=== PATIENT | male | born 1950 | race Caucasian/White ===

== ENCOUNTER 2023-08-08 04:54 | Observation (INO) ==
--- NOTE | 2023-07-03 11:54 | PAT Medication Instructions ---
Medication Instructions Date of Service July 03, 2023 Home Medications amlodipine 5 mg tablet 5 mg PO QAM aspirin 81 mg tablet,delayed release 81 mg PO QAM lisinopril 20 mg tablet 20 mg PO QAM simvastatin 40 mg tablet 40 mg PO PM tamsulosin 0.4 mg capsule 0.8 mg PO PM ASK your prescriber and surgeon aspirin 81 mg tablet,delayed release 81 mg PO QAM DO NOT take the morning of surgery lisinopril 20 mg tablet 20 mg PO QAM Take morning of surgery With a small sip of water, OTHERWISE NOTHING TO EAT OR DRINK AFTER MIDNIGHT: amlodipine 5 mg tablet 5 mg PO QAM Take evening before surgery simvastatin 40 mg tablet 40 mg PO PM tamsulosin 0.4 mg capsule 0.8 mg PO PM Other Notes If you have any questions please call us at [phone] or [phone] or [phone] or [phone]
--- NOTE | 2023-07-09 11:35 | Anesthesiology Consultation ---
Date of Service July 09, 2023 History Surgery Operation Date: 08/08/23 07:15 Proposed Procedures p Left Total Knee Arthroplasty(Left) - Antolin Coronado DO Height/Weight Height: 6 ft 1 in Weight: 113.398 kg Allergies Allergy/AdvReac Type Severity Reaction Status Date / Time atenolol Allergy Intermediate "blood Verified 07/02/23 13:17 pressure issues" Medications Home Medications Medication Instructions Recorded Confirmed Last Taken amlodipine 5 mg tablet 5 mg PO QAM 07/02/23 07/02/23 Unknown aspirin 81 mg tablet,delayed 81 mg PO QAM 07/02/23 07/02/23 Unknown release lisinopril 20 mg tablet 20 mg PO QAM 07/02/23 07/02/23 Unknown simvastatin 40 mg tablet 40 mg PO PM 07/02/23 07/02/23 Unknown tamsulosin 0.4 mg capsule 0.8 mg PO PM 07/02/23 07/02/23 Unknown Past Medical History Medical History BPH (benign prostatic hyperplasia) History of aortic valve disease s/p TAVR (08/2022) Follows with Dr. Palmer Hyperlipidemia Hypertension Kidney cysts Obesity Osteoarthritis Umbilical hernia present Past Surgical History Surgical History History of anesthesia reaction [place] a lot of right sided pain during TAVR, ? sedation History of arthroscopy left knee History of cardiac cath Jul 2022 > no stents History of colonoscopy Hx of hernia repair x2 S/P TAVR (transcatheter aortic valve replacement) 08/2022, [facility] [place] Social History Smoking Status: Former smoker Do You Dip or Chew Tobacco: No Smoking End Date: 30 yrs ago Hx Alcohol Use: No Hx Substance Use: No substance use type: does not use
--- NOTE | 2023-07-09 11:38 | Anesthesiology Consultation ---
Date of Service July 09, 2023 Assessment & Plan (1) Encounter for pre-operative examination: - Infectious disease screening: Per assessment on 07/09/23: No known infectious disease contacts or current infectious disease symptoms. No noted recent Covid positive test result. - Outpatient joint assessment: Pt currently scheduled for inpatient pathway. If surgeon requests review for outpatient joint pathway, patient is not recommended candidate for outpatient joint program from anesthesia standpoint based on available information. - Awaiting upcoming cardiology-ordered Echo (Dr. Palmer, appt 07/27) and upcoming cardiology office visit note (Dr. Palmer, appt 08/03). Chart Review Chart Review: Patient seen in Pre Admission Testing Teaching & Discussion Pre-Anesthesia Teaching/Discussion Notes: Instructed NPO after midnight before surgery,except medications with 15 cc of water. Medication instructions provided according to the PAT guidelines. History Surgery Operation Date: 08/08/23 07:15 Proposed Procedures p Left Total Knee Arthroplasty(Left) - Antolin Coronado, Height/Weight Height: 6 ft 1 in Weight: 117.4 kg Allergies Allergy/AdvReac Type Severity Reaction Status Date / Time atenolol Allergy Intermediate "blood Verified 07/02/23 13:17 pressure issues" Medications Home Medications Medication Instructions Recorded Confirmed Last Taken amlodipine 5 mg tablet 5 mg PO QAM 07/02/23 07/02/23 Unknown aspirin 81 mg tablet,delayed 81 mg PO QAM 07/02/23 07/02/23 Unknown release simvastatin 40 mg tablet 40 mg PO PM 07/02/23 07/02/23 Unknown tamsulosin 0.4 mg capsule 0.8 mg PO PM 07/02/23 07/02/23 Unknown lisinopril 20 1 tab PO DAILY 07/09/23 07/09/23 Unknown mg-hydrochlorothiazide 12.5 mg tablet Past Medical History Medical History BPH (benign prostatic hyperplasia) History of aortic valve disease s/p TAVR (08/2022) Follows with Dr. Palmer Hyperlipidemia Hypertension Kidney cysts Obesity Osteoarthritis Umbilical hernia present Exercise / Class Metabolic Activity II 4-5 Yardwork/Stairs/Walk up hill (one FS (no CP, no SOB)) Past Surgical History Surgical History History of anesthesia reaction [place] a lot of right sided pain during TAVR (done with light sedation per patient) History of arthroscopy left knee History of cardiac cath Jul 2022 > no stents History of colonoscopy Hx of hernia repair x2 S/P TAVR (transcatheter aortic valve replacement) 08/2022, [facility] [place] Past Anesthesia History No Family Hx of Anesthesia Complications and Other ([place] a lot of right sided pain during TAVR (done with light sedation per patient)) History of PONV No Hx of PONV and No Hx of Motion Sickness Social History Smoking Status: Former smoker Do You Dip or Chew Tobacco: No Smoking End Date: Quit 30 years ago Hx Alcohol Use: No Hx Substance Use: No substance use type: does not use Review of Systems Patient denies chest pain, shortness of breath, dyspnea on exertion, fever, chills, cough, wheezing, palpitations. Physical Exam Vital Signs VITALS BP 151/72 P 71 TEMP 97.9 SP02 96%RA RESP 18 PHYSICAL Full cervical extension range of motion. Full TMJ range of motion. TMD 3 finger breaths Mallampati Score 3 Dentition: several missing teeth, upper front crowns Lungs: clear throughout to auscultation Cardiac: regular rate and rhythm, III/ systolic murmur with carotid radiation Spine: normal Extremities: no LE edema Lab Results Anesthesia Preop Results Results Anesthesia Widget: PT 11.1 Seconds (9.0-12.0) 07/09/23 PTT 28 Seconds (21-31) 07/09/23 INR 1.0 (0.9-1.1) 07/09/23 Urine Color Yellow 07/09/23 Urine Appearance Clear (Clear) 07/09/23 Urine pH 5.0 (4.5-7.5) 07/09/23 Urine Specific [place] 1.017 (1.000-1.030) 07/09/23 Urine Protein Negative (Negative) 07/09/23 Urine Glucose (UA) Negative (Negative) 07/09/23 Urine Ketones Negative (Negative) 07/09/23 Urine Blood Negative (Negative) 07/09/23 Urine Nitrite Negative (Negative) 07/09/23 Urine Bilirubin Negative (Negative) 07/09/23 Urine Urobilinogen Negative (Negative) 07/09/23 Urine Leukocyte Esterase Negative (Negative) 07/09/23 Blood Type A Positive 07/09/23 Antibody Screen NEGATIVE 07/09/23 Testing Laboratory Results 06/13/23 WBC 6.4 H/H 14.0/41.4 PLATELETS 191 SODIUM 139 POTASSIUM 4.3 CHLORIDE 106 CO2 25 BUN 15 CREATININE 0.9 GLUCOSE 112 HGBA1C 5.5% Electrocardiogram Date: 09/29/22 Sinus bradycardia at 55 bpm. Voltage criteria for LVH. Nonspecific T wave abnormality. Chest X-Ray Date: 07/09/23 FINDINGS: Cardiac mediastinal and hilar silhouettes are within normal limits prosthetic aortic valve. Atherosclerosis of the aorta. No pneumothorax, pleural effusion or airspace consolidation. The bones appear grossly intact. IMPRESSION: No acute process. Echocardiogram Date: 09/29/22 Cardiac Catheterization Date: 06/08/22 Recommendations: Aggressive risk factor modification. No significant epicardial coronary artery disease. Impression plan: To follow-up in our valve clinic where decision shall be made depending on investigations and further team discussions about a surgical or transcatheter aortic valve replacement. > Subsequent TAVR performed 08/2022*
--- NOTE | 2023-07-10 08:19 | History & Physical Report ---
Date of Service July 10, 2023 date of surgery: 08/08/23 Procedure: Left Total Knee Arthroplasty Surgeon: Antolin Coronado, DO Assessment & Plan (1) Arthritis of knee, left: Plan: Presents for evaluation of continued bilateral knee pain, left greater than rig ht. Has a longstanding history of knee pain, has undergone previous viscosupplementation as well as corticosteroid injections without any significant relief. Repeat radiographs show advanced degenerative changes to bilateral knees, has complete loss of medial compartment with overall varus alignment, osteophyte formation subchondral sclerosis noted. We discussed treatment options he would like to proceed with surgical intervention. He does have a history of heart valve replacement, would recommend doing his left knee first and then 6 to 8 weeks later can schedule for his right knee pending his recovery after his left. We will need cardiac clearance as well as clearance from his PCP prior to the surgery. We will plan on patient-matched [facility] [employer] left total knee arthroplasty with overnight stay at the hospital. He otherwise has no other questions or concerns The risks and benefits have been discussed including, but not limited to, risk of infection, nerve injury, stiffness, loss of motion, failure to improve, etc. Reasonable outcomes and options of treatment were discussed. An explanation of appropriate alternatives to the procedure that may be advantageous were discus sed and their risks and benefits, as well as the risks and benefits of not proceeding with treatment. I offered to answer any additional inquiries concerning the treatment involved. All the patient's questions were answered. The patient is agreeable, understanding of the treatment plan and alternatives, and wishes to proceed with the treatment plan. History of Present Illness Chief Complaint: left knee pain Primary Care Provider: NO PCP Mr Bryant is a pleasant 73-year-old male who presented for preop evaluation prior to upcoming left total knee arthroplasty. He has a longstanding history of left knee pain which is gradually worsened and is now affecting his daily activities including walking standing using stairs. He has tried oral anti- inflammatories as well as Tylenol without relief, he is also undergone previous corticosteroid injection and viscosupplementation with no improvement. This point time is failed conservative measures and wishes to proceed with a left total knee replacement Allergies Allergy/AdvReac Type Severity Reaction Status Date / Time atenolol Allergy Intermediate "blood Verified 07/02/23 13:17 pressure issues" Home Medications Medication Instructions Recorded Confirmed Type amlodipine 5 mg tablet 5 mg PO QAM 07/02/23 07/02/23 History aspirin 81 mg tablet,delayed 81 mg PO QAM 07/02/23 07/02/23 History release simvastatin 40 mg tablet 40 mg PO PM 07/02/23 07/02/23 History tamsulosin 0.4 mg capsule 0.8 mg PO PM 07/02/23 07/02/23 History lisinopril 20 1 tab PO DAILY 07/09/23 07/09/23 History mg-hydrochlorothiazide 12.5 mg tablet Past Med/Surg History Medical History Obesity History of aortic valve disease s/p TAVR (08/2022) Follows with Dr. Palmer Osteoarthritis Kidney cysts BPH (benign prostatic hyperplasia) Umbilical hernia present Hyperlipidemia Hypertension Surgical History History of anesthesia reaction [place] a lot of right sided pain during TAVR (done with light sedation per patient) History of arthroscopy left knee History of colonoscopy Hx of hernia repair x2 History of cardiac cath Jul 2022 > no stents S/P TAVR (transcatheter aortic valve replacement) 08/2022, [facility] [place] Social History Smoking Status: Former smoker Second Hand Exposure: No; Do You Dip or Chew Tobacco: No; Hx Alcohol Use: No Hx Substance Use: No Preferred Language: Burmese Communication Ability: Effective Circuit Manager Required: No Beliefs That Will Affect Care: None Current Living Situation: Spouse Feels Safe at Home: Yes Assistive Devices: Glasses and Hearing Aid - Bilateral Review of Systems Review of Systems: All systems reviewed & are unremarkable except as noted in HPI & below Constitutional: no fever, no chills and no sweats Respiratory: no cough and no dyspnea Cardiovascular: no chest pain, no dyspnea and no orthopnea Gastrointestinal: no abdominal pain, no nausea and no vomiting Musculoskeletal: as per Subjective / HPI Physical Exam Physical Exam: HT: 6ft 1in WT: 117kg Constitutional: WD/WN, vitals as above no acute distress Respiratory: normal respiratory effort, lungs clear to auscultation no respiratory distress, no labored breathing and does not use accessory muscles Cardiovascular: RRR, no murmur, no edema Gastrointestinal (Abdomen): normal bowel sounds, soft, nontender, no hepatosplenomegaly Musculoskeletal: Knee: + knee abnormal to inspection (LEFT KNEE: ), + effusion (+1 effusion), + limited ROM of knee (ROM 0/3/110), + knee ROM with crepitation, + joint line tenderness (medial joint line) and + Bharti's sign positive; no deformity, no skin erythema, no ecchymosis, no valgus laxity, no varus laxity, anterior drawer test negative, Jm's sign negative and pivot shift test negative Results & Data Results & Data Diagnostic Findings Left Knee X-ray: left knee series confirm advanced degenerative changes to the left knee, greatest medial compartments and patellofemoral joint, showing joint space narrowing, osteophyte formation and subchondral sclerosis. no acute bony pathology noted.
[2023-08-08] MEDS: GABAPENTIN 300 MG CAP PO SCH (05:52)
[2023-08-08] MEDS: CeleBREX 200 MG CAP PO SCH (05:52)
[2023-08-08] MEDS: FAMOTIDINE 20 MG TAB PO SCH (05:52)
[2023-08-08] MEDS: dexAMETHasone**PF** 10 MG/ML VIAL IV SCH (05:52)
[2023-08-08] MEDS: ACETAMINOPHEN 500 MG TAB PO SCH ×2 (05:52→21:26)
[2023-08-08] MEDS: LR 15ML/HR IV SCH (05:53)
[2023-08-08] MEDS: LR 60ML/HR IV SCH (06:24)
[2023-08-08] MEDS ORDERED: EPINEPHrine INJ 1 MG/ML AMP ONE (06:25)
[2023-08-08] MEDS ORDERED: BUPIVACAINE 0.5 % 5 MG/1 ML PF 10ML VIAL ONE (06:25)
[2023-08-08] MEDS ORDERED: BUPIVACAINE 0.25% PF 30 ML VIAL ONE (06:25)
[2023-08-08] MEDS ORDERED: DEXAMETHASONE SOD INJ 4 MG/ML VIAL ONE (06:25)
[2023-08-08] MEDS ORDERED: PROPOFOL IV EMULSION 10 MG/ML 20 ML VIAL IV ONE (06:57)
[2023-08-08] MEDS ORDERED: fentaNYL citrate PF 100 MCG/2 ML VIAL ONE (06:57)
[2023-08-08] MEDS ORDERED: MIDAZOLAM HCL 1 MG/ML 2ML VIAL ONE (06:57)
[2023-08-08] MEDS: TRANEXAMIC ACID 1,000 MG **IV Pre-op IV SCH (07:09)
--- NOTE | 2023-08-08 07:14 | History & Physical Bridge Note ---
Date of Service August 08, 2023 History & Physical Bridge Note I have examined the patient, reviewed the History & Physical and in the interval since the performance of the History & Physical I have noted the following changes of clinical significance: no changes noted
[2023-08-08] MEDS: ceFAZolin 2000MG 2,000 MG/15 ML SYR IV SCH ×2 (07:20→15:59)
[2023-08-08] MEDS ORDERED: ePHEDrine sulfate 50 MG/5 ML SYR ONE (07:45)
[2023-08-08] MEDS: ROPIV 0.5% 246mg, Ketorolac 30mg, EPINEPHrine 0.5mg in NSS INFIL SCH (07:45)
[2023-08-08] MEDS ORDERED: ePHEDrine sulfate 50 MG/ML AMP IV PRN (08:08)
[2023-08-08] MEDS ORDERED: ATROPINE SULFATE 0.1 MG/ML 10ML SYR IV PRN (08:08)
[2023-08-08] MEDS ORDERED: fentaNYL citrate PF 100 MCG/2 ML VIAL IV PRN (08:08)
[2023-08-08] MEDS ORDERED: ONDANSETRON INJ 2 MG/ML 2 ML VIAL IV PRN ×2 (08:08→10:19)
--- NOTE | 2023-08-08 08:27 | Operative Report ---
Post Operative Report Pre & Post Diagnosis Operation Date: 08/08/23 07:15 Pre-Op Diagnosis: Left Knee Osteoarthritis Post-Op Diagnosis: Left Knee Osteoarthritis I identified the patient and participated in the time-out.: Yes Procedure Operation Date: 08/08/23 07:15 Actual Procedures p Left utilizing [facility] [employer] journey 2 patient-matched total knee arth roplasty size femur 8 tibia 7 poly 12 patella 32 oval total Knee Arthroplasty(Left) - Antolin Coronado DO Surgeon Antolin Coronado DO Stone Operator ANNALEE Perry Estimated Blood Loss 5 Findings Consistent with Post-Op Diagnosis Patient presents with severe end-stage tricompartmental DJD varus alignment [id number] 5 degree flexion contracture eburnated [id number] subchondral sclerosis marginal osteophytes and with a moderate to large effusion Specimens Bone and cartilage Drains Medium bore Hemovac Anesthesia Type MAC Spinal Regional Complications none Disposition Accompanied Patient To Recovery: No Disposition: Recovery Room Indications Patient presents with severe end-stage tricompartmental DJD failed attempted conservative management occluding physical therapy anti-inflammatories relative rest activity modification corticosteroid injection viscosupplementation Description of Procedure After proper prepping and draping of the left lower extremity anterior midline incision was made over the region of the extensor extensor mechanism after meticulous hemostasis was obtained and maintained in subcutaneous tissues a med ial parapatellar incision was made The patella was subluxed lateralward the medial lateral gutter were cleaned from any hypertrophic synovitis and scar tissue of the distal femoral block was placed and the distal femoral osteotomy cut was made subsequently the chamfers anterior and posterior osteotomy cuts were made utilizing the 4-in-1 block the tibia was subsequently subluxed anteriorward medial and ateral meniscal remnants were excised in their entirety remnants of the anterior and posterior cruciate ligaments were excised in their entirety excellent exposure of the proximal tibia was obtained the tibial osteotomy guide was placed on the proximal tibial osteotomy cut was made once again the knee was irrigated with copious amounts of sterile saline solution the patella was subsequently everted lateralward thickened scar tissue around the patella was removed the patella was subsequently cut utilizing a freehand technique and was drilled prepared for final preparation and placement of patella socially flexion-extension gaps were checked and the equal and symmetric trials were placed to the appropriate femoral and tibial trials with poly-spacer being placed for equal flexion and extension gaps and full range of motion including extension to 0 and flexion to 140 the trial components after having been taken to recovery range of motion was subsequently removed meticulous hemostasis was obtained and maintained subsequently a knee block injection of joint cocktail including ropivacaine 0.5% 150 mg. Bupivacaine 0.5% epinephrine 1-200,030 mL's toradol 30 mg dexamethasone 4 mg ketamine 10 mg clonidine 100 micrograms normal saline solution 30 mg was infiltrated into the soft tissues of the posterior knee medial lateral gutters and periosteal synovium special attention was paid to protect neurovascular structures at all times subsequently trial components having been removed the knee was irrigated with sterile saline solution. debris was removed the proximal tibia was subsequently prepared and was made ready for the placement of the tibial component tibial component was also cemented and tamped into position the femoral component was subsequently placed and cemented in the position the patellar component was subsequently cemented in position because hemostasis once again obtained and maintained wound having been thoroughly irrigated with debridement and debridement lavage was performed as well as a medial parapatellar incision closed with #1 Vicryl in interrupted fashion subcutaneous was closed with #2 Vicryl skin was closed with skin clips. PA-C was necessary for prepping and drapping as well as wound closure of deep fascia Sub cutaneous tissue and skin and was necessary for the case. A sterile compressive dressing was placed patient was taken to recovery in stable condition of report dictated by Cliff I attest to the content of the Intraoperative Record and any orders documented therein. Any exceptions are noted below.Due to the complex nature of the procedure, the entire surgery was performed with the operational assistance of ANNALEE Perry the preschool assistant, under direct supervision, was involved in the actual performance of all aspects of the surgical procedure including hemostasis, tissue retraction and incision, instrument management, patient positioning, and wound closure. I attest to the content of the Intraoperative Record and any orders documented therein. Any exceptions are noted below.
--- NOTE | 2023-08-08 09:35 | XRay Report ---
LEFT KNEE 2 VIEWS History: Left total knee arthroplasty. Degenerative arthritis. Postop. FINDINGS: The patient is status post a left total knee arthroplasty. The hardware is intact. No fract ure or dislocation. Surgical drains are in place. IMPRESSION: Left total knee arthroplasty. No evidence for hardware complication. ACT 112: Negative or not required by law. Electronically signed by: Augustus Desir M.D. 08/08/2023 9:34 AM
[2023-08-08] MEDS ORDERED: oxyCODONE HCL IR 5 MG TAB (IMMEDIATE RELEASE) PO PRN (10:19)
[2023-08-08] MEDS ORDERED: HYDROmorphone INJ 1 MG/ML SYRINGE IV PRN (10:19)
[2023-08-08] MEDS ORDERED: diphenhydrAMINE Capsule 25 MG CAP PO PRN (10:19)
[2023-08-08] MEDS ORDERED: bisacodyL 10 MG SUPP PR PRN (10:19)
[2023-08-08] MEDS ORDERED: NALOXONE HCL 0.4 MG/1 ML VIAL/CARP IV PRN (10:19)
[2023-08-08] MEDS ORDERED: METOCLOPRAMIDE HCL INJ 5 MG/ML 2 ML VIAL IV PRN (10:19)
[2023-08-08] MEDS ORDERED: MAGNESIUM HYDROXIDE SUSP 30 ML UDC PO PRN (10:19)
[2023-08-08] MEDS: ORTHO JOINT ANESTHETIC ONE (10:57)
[2023-08-08] MEDS: TRANEXAMIC ACID 1,000 MG **IV Intra-op IV SCH (10:58)
[2023-08-08] MEDS: METOCLOPRAMIDE HCL 10 MG TABLET PO SCH (10:58)
--- NOTE | 2023-08-08 11:28 | Hospitalist Consultation ---
Date of Consultation August 08, 2023 Assessment & Plan (1) Status post total knee replacement: Pain / VTE / bowel management per primary orthopedic team (2) History of aortic valve disease: s/p TAVR (08/2022) - Follows with Dr. 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 History of Present Illness Reason for Consultation: post op management, HTN, h/o valve replacement Attending Physician: Antolin Coronado, DO History of Present Illness Jose F Bryant is a 73 year old male POD# 0 Left total knee arthroplasty. Estimated blood loss 5ml. MAC Spinal regional anesthetic. No complications noted. Pre-op medical clearance note reviewed. Cardiology mentioned switching aspirin to Eliquis although unclear reason for this. The patient has no history of venous thromboembolism or atrial fibrillation. PCP wanted to hold off Eliquis until biopsy of skin lesion on left arm is performed. 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 Eliquis notably prescribed by orthopedic team @ 5mg PO BID. GERD noted on pre-op clearance history but this was years ago and related to his stressful job - no longer an issue and not on medication for this. With regards to his aortic stenosis s/p TAVR - no dizziness, chest pain or shortness of breath on exertion. Allergies Allergy/AdvReac Type Severity Reaction Status Date / Time atenolol Allergy Intermediate "blood Verified 08/08/23 05:32 pressure issues" Home Medications Medication Instructions Recorded Confirmed Type amlodipine 5 mg tablet 5 mg PO QAM 07/02/23 08/08/23 History aspirin 81 mg tablet,delayed 81 mg PO QAM 07/02/23 08/08/23 History release simvastatin 40 mg tablet 40 mg PO PM 07/02/23 08/08/23 History tamsulosin 0.4 mg capsule 0.8 mg PO PM 07/02/23 08/08/23 History lisinopril 20 1 tab PO DAILY 07/09/23 08/08/23 History mg-hydrochlorothiazide 12.5 mg tablet Patient History Medical History (Updated 08/08/23 @ 11:22 by Jeremiah Beth MD) History of aortic valve disease s/p TAVR (08/2022) Follows with Dr. Palmer Obesity Osteoarthritis Kidney cysts BPH (benign prostatic hyperplasia) Umbilical hernia present Hyperlipidemia Hypertension Surgical History (Updated 08/08/23 @ 11:22 by Jeremiah Beth MD) History of anesthesia reaction [place] a lot of right sided pain during TAVR (done with light sedation per patient) History of arthroscopy left knee History of colonoscopy Hx of hernia repair x2 History of cardiac cath Jul 2022 > no stents S/P TAVR (transcatheter aortic valve replacement) 08/2022, PH [place] Social History Smoking Status: Former smoker Smoking End Date: Quit 30 years ago; Second Hand Exposure: No; Do You Dip or Chew Tobacco: No; Tobacco Cessation Education Requested by Patient: No Hx Alcohol Use: No Hx Substance Use: No Preferred Language: Marshallese Communication Ability: Effective Rat Culturist Required: No Beliefs That Will Affect Care: None Current Living Situation: Spouse Other Information That Helps Us Care for You: No Feels Safe at Home: Yes Safety Concerns: Feels Safe At This Time Assistive Devices: Glasses and Hearing Aid - Bilateral Assistive Devices Comment: caps to teeth Review of Systems Review of Systems: All systems reviewed & are unremarkable except as noted in HPI & below Physical Exam Constitutional: WD/WN, vitals as above Eyes: + anicteric sclerae; normal pupil size ENMT: external ear and nose normal, oropharynx normal Respiratory: normal respiratory effort, lungs clear to auscultation Cardiovascular: Rate/Rhythm: regular rate and regular rhythm Heart Sounds: + murmur (Loudest RUSB 2/6 MARIA ISABEL) Gastrointestinal (Abdomen): normal bowel sounds, soft, nontender, no hepatosplenomegaly Skin: no rashes, warm and dry Neurologic: moves all extremities and awake; not confused Psychiatric: A+Ox3, euthymic affect Results & Data Results & Data Vital Signs (Past 12 Hours) Vital Signs Temp Pulse Pulse Resp BP Pulse Ox O2 Del Method 08/08/23 11:16 71 16 153/68 H 92 Room Air 08/08/23 10:45 37.4 C 77 16 144/71 H 94 Room Air 08/08/23 10:19 36.6 C 75 16 132/72 91 Room Air 08/08/23 09:55 74 18 132/55 L 94 Room Air 08/08/23 09:40 78 18 127/65 94 Room Air 08/08/23 09:25 36.4 C L 79 18 121/50 L 94 Room Air 08/08/23 09:15 77 14 110/61 96 Nasal Cannula 08/08/23 09:05 83 16 128/53 L 95 Nasal Cannula 08/08/23 08:59 36.4 C L 88 18 106/51 L 98 Nasal Cannula 08/08/23 05:34 36.5 C 63 18 180/78 H 97 Room Air O2 Flow Rate 08/08/23 11:16 08/08/23 10:45 08/08/23 10:19 08/08/23 09:55 08/08/23 09:40 08/08/23 09:25 08/08/23 09:15 2 08/08/23 09:05 3 08/08/23 08:59 3 08/08/23 05:34 PG Care Time/CCT Total # of Minutes Spent Total Time Spent with Patient: Total time spent is greater than 50% in coordination of care (as documented) at patient's floor/unit and/or counseling patient: Coding Level of Care Code 94521 IN/OBS CONSULT LVL 4,60M Diagnoses Status post total knee replacement Z96.659 History of aortic valve disease Z86.79 BPH (benign prostatic hyperplasia) N40.0 Hyperlipidemia E78.5 Hypertension I10 Obesity E66.9
--- NOTE | 2023-08-08 11:30 | Anesthesiology Progress Note ---
Date of Service August 08, 2023 Anesthesia Post Procedure Vital Signs Vital Signs: Temp Pulse Pulse Resp BP Pulse Ox O2 Del Method 08/08/23 11:16 71 16 153/68 H 92 Room Air 08/08/23 10:45 37.4 C 77 16 144/71 H 94 Room Air 08/08/23 10:19 36.6 C 75 16 132/72 91 Room Air 08/08/23 09:55 74 18 132/55 L 94 Room Air 08/08/23 09:40 78 18 127/65 94 Room Air 08/08/23 09:25 36.4 C L 79 18 121/50 L 94 Room Air 08/08/23 09:15 77 14 110/61 96 Nasal Cannula 08/08/23 09:05 83 16 128/53 L 95 Nasal Cannula 08/08/23 08:59 36.4 C L 88 18 106/51 L 98 Nasal Cannula 08/08/23 05:34 36.5 C 63 18 180/78 H 97 Room Air O2 Flow Rate 08/08/23 11:16 08/08/23 10:45 08/08/23 10:19 08/08/23 09:55 08/08/23 09:40 08/08/23 09:25 08/08/23 09:15 2 08/08/23 09:05 3 08/08/23 08:59 3 08/08/23 05:34 Transfer of Care Handoff Completed per policy Notes Mental Status: alert / awake / arousable Patient Amnestic to Procedure: Yes Nausea / Vomiting: adequately controlled Pain: adequately controlled Airway Patency, RR, SpO2: stable & adequate BP & HR: stable & adequate Hydration State: stable & adequate Neuraxial Anesthesia: was administered and sensory block is resolving Anesthetic Complications: no major complications apparent and Pt Satisfied with anesthetic care
[2023-08-08] MEDS ORDERED: Nursing to Pharmacy Communication SCH (11:45)
[2023-08-08] MEDS: amLODIPine BESYLATE 5 MG TAB PO SCH (11:58)
[2023-08-08] MEDS: SODIUM CHLORIDE 0.9% 1,000 ML IV SCH (14:11)
[2023-08-08] MEDS: ACETAMINOPHEN 500 MG TAB PO ONE (15:51)
[2023-08-08] MEDS: DOCUSATE SODIUM 100 MG CAP PO SCH (19:57)
[2023-08-08] MEDS: SENNA 8.6 MG TAB PO SCH (19:57)
[2023-08-08] MEDS: TAMSULOSIN HCL 0.4 MG CAP PO SCH (19:57)
[2023-08-08] MEDS: SIMVASTATIN 40 MG TAB PO SCH (19:57)
--- NOTE | 2023-08-09 06:57 | Orthopedic Progress Note ---
Date of Service August 09, 2023 Assessment & Plan (1) Status post total knee replacement: Plan: POD #1 s/p Left TKA pt/ot dvt proph with KRZYSZTOF/SCD/Eliquis x 2 weeks then will transition to ASA plan for d/c home with HHPT Admission and Anticipated Discharge Date Admission Date: August 08, 2023 Subjective POD #1 s/p Left TKA Review of Systems Constitutional: no fever, no chills and no sweats Respiratory: no cough and no dyspnea Cardiovascular: no chest pain and no dyspnea Gastrointestinal: no abdominal pain, no nausea and no vomiting Physical Exam Physical Exam: Vital Signs Temp 36.5 C 08/09/23 04:11 Pulse 67 08/09/23 04:11 Resp 14 08/09/23 04:11 BP 155/75 H 08/09/23 04:11 Pulse Ox 96 08/09/23 04:11 O2 Del Method Room Air 08/09/23 04:11 O2 Flow Rate 2 08/08/23 09:15 Intake & Output 08/08/23 08/08/23 08/09/23 06:59 18:59 06:59 Intake Total 2800 / 4208.333 1408.333 / 4208.33 3 Output Total 155 / 666 511 / 666 Balance 2645 / 3542.333 897.333 / 3542.333 Weight 116.4 kg 116.4 kg Intake: IV 100 / 1028.333 928.333 / 1028.333 Lactated Ringe r's 1,000 ml @ 15 0 / 0 mls/hr IV .Q24 H RIYA Rx#: [id number] Sodium Chlorid e 0.9% 1,000 ml @ 928.333 / 928.333 100 mls/hr IV .Q10H RIYA Rx#: [id number] Tranexamic Aci d / 0.7% NaCl 1, 100 / 100 000 mg In 100 ml @ 600 mls/hr IV TODAY@0600 RIYA Rx#:[id number] IV Perioperative 1700 / 1700 Oral 1000 / 1480 480 / 1480 Output: Urine 320 / 320 Estimated Blood Loss 5 / 5 Drain Output 150 / 340 190 / 340 Left Knee Hemo vac 150 / 340 190 / 340 # Bowel Movement s 1 / Other: # Unmeasured Voi ds 2 1 Weight Measureme nt Method Standing Scale Musculoskeletal: Left Leg: NVDI, calf SNT, negative zarina sign. DP palpable, able to wiggle toes/ankle movement without difficulty. dressing clean dry and intact. Results & Data Vital Signs (Past 12 Hours) Vital Signs Temp Pulse Resp BP Pulse Ox O2 Del Method 08/09/23 04:11 36.5 C 67 14 155/75 H 96 Room Air 08/09/23 00:43 36.5 C 75 16 157/69 H 95 Room Air 08/08/23 20:43 36.7 C 84 14 160/78 H 90 Room Air Laboratory Results Impressions Knee X-Ray 08/08/23 09:05 LEFT KNEE 2 VIEWS History: Left total knee arthroplasty. Degenerative arthritis. Postop. FINDINGS: The patient is status post a left total knee arthroplasty. The hardware is intact. No fracture or dislocation. Surgical drains are in place. IMPRESSION: Left total knee arthroplasty. No evidence for hardware complication. ACT 112: Negative or not required by law. Electronically signed by: Augustus Desir M.D. 08/08/2023 9:34 AM
--- NOTE | 2023-08-09 07:07 | Discharge Summary ---
Date of Service date of discharge: August 09, 2023 date of admission: 08/08/2023 Admission HPI Per Admitting Provider Mr Bryant is a pleasant 73-year-old male who presented for preop evaluation prior to upcoming left total knee arthroplasty. He has a longstanding history of left knee pain which is gradually worsened and is now affecting his daily activities including walking standing using stairs. He has tried oral anti- inflammatories as well as Tylenol without relief, he is also undergone previous corticosteroid injection and viscosupplementation with no improvement. This point time is failed conservative measures and wishes to proceed with a left total knee replacement Principal Diagnosis left knee arthritis Discharge Exam Vital Signs Temp 36.5 C 08/09/23 04:11 Pulse 67 08/09/23 04:11 Resp 14 08/09/23 04:11 BP 155/75 H 08/09/23 04:11 Pulse Ox 96 08/09/23 04:11 O2 Del Method Room Air 08/09/23 04:11 O2 Flow Rate 2 08/08/23 09:15 Intake & Output 08/08/23 08/09/23 08/09/23 18:59 06:59 18:59 Intake Total 2800 / 4208.333 1408.333 / 4208.333 Output Total 155 / 666 511 / 666 Balance 2645 / 3542.333 897.333 / 3542.333 Weight 116.4 kg Intake: IV 100 / 1028.333 928.333 / 1028.333 Lactated Ringer's 1,000 ml @ 15 0 / 0 mls/hr IV .Q24H RIYA Rx#: [id number] Sodium Chloride 0.9% 1,000 ml @ 928.333 / 928.333 100 mls/hr IV .Q10H RIYA Rx#: [id number] Tranexamic Acid / 0.7% NaCl 1, 100 / 100 000 mg In 100 ml @ 600 mls/hr IV TODAY@0600 RIYA Rx#:[id number] IV Perioperative 1700 / 1700 Oral 1000 / 1480 480 / 1480 Output: Urine 320 / 320 Estimated Blood Loss 5 / 5 Drain Output 150 / 340 190 / 340 Left Knee Hemovac 150 / 340 190 / 340 # Bowel Movements 1 / 1 Other: # Unmeasured Voids 2 1 Musculoskeletal left knee: NVDI, calf SNT, negative zarina sign. DP palpable, able to wiggle toes/ankle movement without difficulty. dressing clean dry and intact. Discharge Data Allergies Allergy/AdvReac Type Severity Reaction Status Date / Time atenolol Allergy Intermediate "blood Verified 08/08/23 05:32 pressure issues" Consultations 08/08/23 10:19 Consult Hospitalist Routine Procedures Performed Operation Date: 08/08/23 07:15 Actual Procedures p Left Total Knee Arthroplasty(Left) - Antolin Rodriguez DO Ordered Studies 08/08/23 05:00 US - OR guided needle placemen Routine Total Time Total Time Spent Total Time Spent (In Minutes): 20 Discharge Plan Discharge Items Patient Disposition: Home - Home Health Services Reason For Visit: Left Knee Osteoarthritis Discharge Diagnosis: left total knee replacement Activity: Per Instructions section Lifting: Wait until after follow-up appointment Non-emergency contact: Surgeon Call non-emergency contact if: you have any medication questions, your temperature is above 101, your wound has increased redness, your wound has increased drainage and your wound pain has increased Follow-up/Referrals: Cosmo Landeros PA-C [Primary Care Provider] - (CALLED THE PCP OFFICE AND CREDIT AUTHORIZER STATED "COSMO LANDEROS IS NO LONGER AT THEIR FACILITY, [facility]." SPOKE TO PATIENT HE WILL CALL PCP TO HAVE A HOSPITAL FOLLOW UP VISIT 7-10 DAYS.) Diet: Regular Addtl Attending Provider Instructions: ACTIVITY RECOMMENDATIONS: SELF CARE INSTRUCTIONS AFTER TOTAL KNEE REPLACEMENT A. You may need to continue a physical therapy program after discharge from the hospital. There are several options available to you. Your doctor will assist you in selecting the best one for you. 1. An out-patient facility 2 to 3 times a week for therapy or home therapy. 2. Continue working on all exercises taught to you in the hospital. Your goals should be to increase bending of your knee to 90 degrees and beyond and to fully straighten your knee. B. You may progress at your own pace from walking with a walker or crutches to a cane; then to no assistive devices. C. Make walking a part of your daily routine. Be up as much as comfortable with rest periods throughout the day. Rest with leg elevation is very important. Use the ice wrap frequently for the first 3-4 weeks. D. There are no restrictions on activities. You may ride in a car, shop, participate in air traffic systems technician and all social activities. E. Wear the long elastic stockings (KRZYSZTOF hose) 20 hours a day for 2 weeks after surgery. They can be removed several times a day for laundering and for a bath. F. You may shower, no tub baths until cleared by your doctor. SPECIAL CARE INSTRUCTIONS: VERY IMPORTANT TO READ AND REVIEW A. There are a few signs you need to watch for after you are home. Call [facility] if you notice any of the followin. Increased severe knee pain. Some pain is expected especially when you exercise. 2. Increased swelling in your leg or knee; pain or swelling of the calf muscle in either lower leg. 3. Any fluid drainage from the incision. 4. Shortness of breath or chest pain. B. Please call [facility] at if you have any concerns or questions about your operation or recovery. The doctor or his nurse will return your call promptly. C. You must take antibiotics before dental work, bladder, bowel or other surgery. Your doctor will provide you with a permanent care to carry describing this precaution. IMPORTANT: * REMEMBER TO TAKE ASPIRIN, 81 MG, TWICE DAILY FOR 4 WEEKS UNLESS OTHERWISE DIRECTED. THIS IS YOUR BLOOD THINNER. * HIGH RISK PATIENTS MAY BE PRESCRIBED A STRONGER BLOOD THINNER. THIS WILL BE PROVIDED AT DISCHARGE. * CALL IF INCREASED PAIN, REDNESS, DRAINAGE OR FEVER GREATER THAT 101. * WEAR KRZYSZTOF HOSE 20 HOURS PER DAY FOR 2 WEEKS. DRESSING INSTRUCTIONS * LISSY Dressing- This is a large suction dressing covering your incision. This will help pull any excess drainage from the wound and allow your incision to heal properly. You may shower with this if you can keep the unit outside of the shower. If any bleeding or leakage is noted please call your doctor's office. This will remain on your incision for 7 days and then should be removed. This can be done yourself or by the home nursing staff if applicable. The entire unit is disposable once removed. Once removed, keep incision clean and dry. If redness or drainage is noted, please call your surgeon. ONCE LISSY IS REMOVED, FOLLOW THESE INSTRUCTIONS: DERMABOND Prineo- This is a mesh tape dressing that is covered with glue. It should remain in place until the incision is properly healed, usually 10-14 days. This dressing is designed to naturally slough off. You may trim the excess mesh tape as it peels off. Incision may be briefly wet in a shower. Dry immediately by blotting with a clean, dry towel. Do not bath or swim until instructed by your doctor. Do not scratch, rub, or pick at the dressing. Do not apply any topical ointments or lotions until dressing is completely removed and/or instructed by your doctor. There may be a small piece of suture material at one end of your incision. Do not pull or trim this. If it is bothersome or catching on clothing, you may cover it with a band-aid. IF INCISION IS LEAKING THROUGH DRESSING, CALL THE OFFICE . FOLLOW UP VISIT: If appointment is not already scheduled: Please call [facility] to make a follow-up appointment for 2 weeks after your surgery at . Stand-Alone Forms: My [facility] Medications and DC Order Prescriptions: New Eliquis 5 mg Tablet 5 mg PO BID 14 Days Qty: 28 0RF acetaminophen 500 mg tablet 1,000 mg PO Q8 21 Days Qty: 126 0RF cefadroxil 500 mg capsule 500 mg PO BID 14 Days Qty: 28 0RF docusate sodium 100 mg Capsule 100 mg PO BID Qty: 20 0RF oxycodone 5 mg tablet 5 - 10 mg PO Q6H PRN (Reason: pain) Qty: 30 0RF Rx Instructions: ongoing therapy, supervising dr pita rodriguez. max 6 tabs in 24 hours. date of surgery 08/08/23 Continued amlodipine 5 mg Tablet 5 mg PO QAM simvastatin 40 mg Tablet 40 mg PO PM tamsulosin 0.4 mg Capsule 0.8 mg PO PM lisinopril-hydrochlorothiazide 20-12.5 mg Tablet 1 tab PO DAILY Discontinued aspirin [Aspir-81] 81 mg Tablet,Delayed Release (Dr/Ec) 81 mg PO QAM Admission Data Admit Date/Time: 08/08/23 09:05 Attending Provider: Antolin Rodriguez Admit Provider: Antolin Rodriguez Primary Care Provider: Cosmo Landeros Other Providers: Ronald Harrison; Joan Zhang; Jeremiah Siegel; Jack Anderson; Antolin Zamudio; Jose Joe; Luba Huntley; Ignacia Vance; Tiarra Albarado; Yovany Franco; Guido Morrell; Polina Atkins; Rayray Hall; Jeremiah Beth; Augustus Elizalde; Susan Sanders; Pilar Alvarez; Pilar Patton; Rebel Peraza; Penelope Torrez; Yefri Yee; Murtaza Alexandre; Rowena Bales; Nurys Frye; Fay Orr; Rajeev Haile; Gino Malik; Jack Quick; Antolin Dutton; Melani Angel Other Interventions: Discharge Summary Assessment (RN) Last Done: 08/09/23 10:06
[2023-08-09 07:51] LABS: Hematocrit (blood only) 30.7 % (42.0-52.0); Hemoglobin 10.5 g/dl (14.0-18.0); Mean Corpuscular Hemoglobin 29.1 pg (25.0-34.0); Mean Corpuscular Hgb Conc 34.2 g/dL (32.0-36.0); Mean Platelet Volume 11.4 fL (9.4-12.4); Platelet Count 207 K/uL (130-400); RDW Standard Deviation 39.7 fL (36.4-46.3); Red Blood Count 3.61 M/uL (4.70-6.10)
[2023-08-09 08:09] LABS: BUN Creatinine Ratio 30.4 (10-20); Calcium 8.7 mg/dl (8.6-10.3); Creatinine Clr Calc Pharmacy 108.1 ml/min; Est GFR (African American) 102.5 ml/min; Est GFR (Non-African American) 88.5 ml/min; Potassium 4.3 mmol/L (3.5-5.1)
[2023-08-09] MEDS: LISINOPRIL/HCTZ 20/12.5MG 1 TAB TAB PO SCH (08:31)
[2023-08-09] MEDS: APIXABAN 5 MG TABLET PO SCH (08:31)
[2023-08-09] MEDS: MULTIVITAMIN TAB PO SCH (08:34)
== END 2023-08-09 10:36 | disposition home health service (06) ==
LOC: 3N 04:54 → ASU 04:54